=== PATIENT | female | born 1985 | race Two or more races ===

== ENCOUNTER 2016-12-03 10:33 | Emergency (ER) | payer SELFPAY ==
[~2016-12-03] VITALS: Ht 162.6 cm; Wt 83.1 kg
[2016-12-03 13:17] VITALS: BP 112/66
== END 2016-12-03 13:19 | disposition home or self-care (01) ==
LOC: ED 11:54
DX: M94.0 Chondrocostal junction syndrome [Tietze] (principal); M25.512 Pain in left shoulder
CPT/HCPCS: 71010; 93005; 99284